=== PATIENT | male | born 1995 | race Caucasian/White ===

== ENCOUNTER → 2023-11-20 11:02 | Outpatient (BNVA) | payer OTHER, SELFPAY | PROVIDERS: Visit Provider Physician Assistant Medical | DX: J39.3 Upper respiratory tract hypersensitivity reaction, site unspecified (principal); L24.81 Irritant contact dermatitis due to metals; Z77.018 Contact with and (suspected) exposure to other hazardous metals | CPT/HCPCS: 99203 ==

== ENCOUNTER → 2023-11-26 15:26 | Outpatient (BNVA) | payer OTHER, SELFPAY | PROVIDERS: Visit Provider Registered Nurse | DX: R21 Rash and other nonspecific skin eruption (principal) | CPT/HCPCS: 99213 ==

== ENCOUNTER → 2023-12-03 14:44 | Outpatient (BNVA) | payer OTHER, SELFPAY | PROVIDERS: Visit Provider Physician Assistant Medical | DX: L24.81 Irritant contact dermatitis due to metals (principal) | CPT/HCPCS: 99213 ==